=== PATIENT | male | born 1950 | race Caucasian/White ===

== ENCOUNTER 2018-09-17 06:58 | Observation (INO) | payer OTHER ==
[2018-09-17] MEDS ORDERED: METOPROLOL TARTRATE 5 MG/5 ML INJ IV ONE (07:24)
[2018-09-17] MEDS ORDERED: METOPROLOL TAR 25 MG TAB ONE (07:24)
[2018-09-17] MEDS ORDERED: NA CHLORIDE 0.9% 500 ML ONE (07:24)
[2018-09-17] MEDS ORDERED: ASPIRIN 81 MG CHEWABLE TABLET ONE (07:24)
[2018-09-17 07:51] LABS: Absolute Lymphocytes (CBC) 1.5 K/uL (0.7-4.9); Absolute Monocytes 0.5 K/uL (0.1-1.3); Absolute Neutrophil 3.5 K/uL (1.8-8.0); Basophils % 0.6 % (0-1.3); Eosinophils % 1.9 % (0-4.4); Hematocrit 43.4 % (39.6-49.0); Lymphocytes % 27.3 % (15.3-44.8); MPV 10.3 fL (7.6-11.3); Monocytes % 8.7 % (3.3-12.3); RBC Red Blood Cell Count 4.66 M/uL (4.33-5.43)
[2018-09-17 08:07] LABS: BUN Blood Urea Nitrogen 21 mg/dL (7-18); Bicarbonate 25 mmol/L (21-32); Glucose Level 100 mg/dL (74-106); Magnesium 2.5 mg/dL (1.8-2.4); NT PRO-BNP 218 pg/mL (<125); Sodium Level 142 mmol/L (136-145); Troponin (Emerg Dept Use Only) < 0.02 ng/mL (0.0-0.045)
--- NOTE | 2018-09-17 08:27 | RAD REPORT ---
EXAM DESCRIPTION: RAD - Chest Single View - 09/17/2018 8:08 am CLINICAL HISTORY: PALPITATIONS Chest pain. COMPARISON: No comparisons FINDINGS: Portable technique limits examination quality. The lungs are grossly clear. The heart is normal in size. No displaced fractures. IMPRESSION: No acute intrathoracic process suspected.
--- NOTE | 2018-09-17 08:40 | ER ---
Nurse's Notes [facility] Name: Brendon Montesinos Age: 68 yrs Sex: Male : 1950 Arrival Date: 09/17/2018 Time: 07:03 Bed 5 Private MD: Diagnosis: Atrial fibrillation and flutter;Dizziness and giddiness Presentation: 09/17 07:04 Presenting complaint: Patient states: "I woke up this morning feeling really dizzy; lp1 I've had dizzy spells before but they usually go away, this time it's not getting any better"; Patient states slight chest soreness at this time; Denies any N/V, shortness of breath. Transition of care: patient was not received from another setting of care. Onset of symptoms was September 17, 2018. Risk Assessment: Do you want to hurt yourself or someone else? Patient reports no desire to harm self or others. Initial Sepsis Screen: Does the patient meet any 2 criteria? No. Patient's initial sepsis screen is negative. Does the patient have a suspected source of infection? No. Patient's initial sepsis screen is negative. Care prior to arrival: None. 07:04 Method Of Arrival: Wheelchair lp1 07:04 Acuity: KATHY 2 lp1 Historical: - Allergies: 07:07 DEET; lp1 - Home Meds: 07:07 None [Active]; lp1 - PMHx: 07:07 None; lp1 - PSHx: 07:07 None; lp1 - Immunization history:: Adult Immunizations up to date. - Social history:: Smoking status: Patient/guardian denies using tobacco. - Ebola Screening: : No symptoms or risks identified at this time. - Family history:: not pertinent. - Hospitalizations: : No recent hospitalization is reported. Screenin:08 Abuse screen: Denies threats or abuse. Denies injuries from another. Nutritional lp1 screening: No deficits noted. Tuberculosis screening: No symptoms or risk factors identified. 08:39 Fall Risk None identified. tw2 Assessment: 07:05 General: Appears uncomfortable, Behavior is calm, cooperative. Pain: Denies pain. aa5 Neuro: Level of Consciousness is awake, alert, obeys commands, Oriented to person, place, time, situation, Ip Paralegal are equal bilaterally Moves all extremities. Speech is normal, Facial symmetry appears normal, Pupils are PERRLA, Reports dizziness. Cardiovascular: Heart tones S1 S2 present Pt states "the muscles on my chest just feel tired". Pt denies palpitations. Rhythm is irregular. Respiratory: Airway is patent Respiratory effort is even, unlabored, Respiratory pattern is regular, symmetrical, Breath sounds are clear bilaterally. Denies shortness of breath. GI: Patient currently denies nausea, vomiting. : No signs and/or symptoms were reported regarding the genitourinary system. EENT: No signs and/or symptoms were reported regarding the EENT system. Derm: Skin is pink, warm \\T\\ dry. Musculoskeletal: Range of motion: intact in all extremities. 07:05 Cardiovascular: Rhythm is atrial fibrillation with rapid ventricular response. aa5 07:40 Reassessment: Patient and/or family updated on plan of care and expected duration. Pain aa5 level reassessed. Patient is alert, oriented x 3, equal unlabored respirations, skin warm/dry/pink. Cardiovascular: Rhythm is atrial fibrillation with rapid ventricular response. 08:00 Reassessment: Patient is alert, oriented x 3, equal unlabored respirations, skin aa5 warm/dry/pink. Patient denies pain at this time. Pt sitting up in bed reading. Pt states "I am not dizzy right now, I only get dizzy when getting up or walking" . Cardiovascular: Rhythm is atrial fibrillation. 08:45 Reassessment: Patient is alert, oriented x 3, equal unlabored respirations, skin aa5 warm/dry/pink. Patient denies pain at this time. Pt notified of wait time for room assignment and breakfast tray ordered. . 09:20 Reassessment: Patient is alert, oriented x 3, equal unlabored respirations, skin aa5 warm/dry/pink. Pt sitting up in bed eating breakfast, pt tolerating well. . Cardiovascular: Rhythm is sinus rhythm. 09:21 Reassessment: Dr. Rodriguez at bedside. Repeat EKG ordered. . aa5 10:00 Reassessment: Patient is alert, oriented x 3, equal unlabored respirations, skin aa5 warm/dry/pink. Pt notified of room assignment and notified of wait time to be transported to room 229, pt verbalized understanding. . Cardiovascular: Rhythm is sinus rhythm. 10:18 Reassessment: Patient is alert, oriented x 3, equal unlabored respirations, skin aa5 warm/dry/pink. Vital Signs: 07:06 BP 104 / 85; Pulse 122; Resp 18; Temp 97.5(O); Pulse Ox 98% on R/A; Weight 80.74 kg; lp1 Height 5 ft. 11 in. (180.34 cm); Pain 0/10; 07:10 BP 112 / 77; Pulse 128; Resp 16 S; Pulse Ox 100% on R/A; aa5 07:16 BP 101 / 70; Pulse 107; Resp 16 S; Pulse Ox 99% ; aa5 07:20 BP 97 / 74; Pulse 112; Resp 18 S; Pulse Ox 99% on R/A; aa5 07:30 BP 100 / 69; Pulse 120; Resp 18 S; Pulse Ox 99% on R/A; aa5 07:40 BP 98 / 76; Pulse 105; Resp 16 S; Pulse Ox 100% on R/A; aa5 07:44 BP 103 / 75; Pulse 98; Resp 20; Pulse Ox 100% on R/A; tw2 08:04 BP 101 / 80; Pulse 93; Resp 18 S; Pulse Ox 99% on R/A; aa5 08:38 BP 104 / 83; Pulse 85; Resp 19; Pulse Ox 98% on R/A; tw2 09:20 BP 117 / 83; Pulse 77; Resp 16 S; Pulse Ox 97% on R/A; aa5 10:00 BP 100 / 65; Pulse 73; Resp 16 S; Temp 98.0(TE); Pulse Ox 98% on R/A; Pain 0/10; aa5 07:06 Body Mass Index 24.83 (80.74 kg, 180.34 cm) lp1 07:10 Pt's HR fluctuating between 120 and 150 bpm aa5 07:16 HR between 107 and 122 bpm aa5 07:30 HR between 105 to 120 bpm aa5 ED Course: 07:03 Patient arrived in ED. lp1 07:05 Initial lab(s) drawn, by me, sent to lab. Inserted saline lock: 20 gauge in left aa5 forearm, using aseptic technique. Blood collected. 07:05 No provider procedures requiring assistance completed. aa5 07:06 Triage completed. lp1 07:06 Arm band placed on left wrist. lp1 07:07 Jules Rodriguez MD is Attending Physician. rn 07:07 Patient has correct armband on for positive identification. Placed in gown. Bed in low lp1 position. political director on. Pulse ox on. NIBP on. 07:08 EKG done, by ED staff, reviewed by Jules Rodriguez MD. lp1 07:35 Bushra Vail, MARIA LUISA is Primary Nurse. aa5 08:09 XRAY Chest (1 view) In Process Unspecified. EDMS 08:38 Zeyad Dodge DO is Hospitalizing Provider. rn 09:28 EKG done, by quality control tech. reviewed by Jules Rodriguez MD. aa5 09:39 EKG done, by quality control tech. reviewed by Jules Rodriguez MD Repeat EKG. at1 10:18 Patient admitted, IV remains in place. aa5 Administered Medications: 07:12 Drug: Aspirin Chewable Tablet 324 mg Route: PO; aa5 07:47 Follow up: Response: No adverse reaction aa5 07:12 Drug: NS 0.9% 500 ml Route: IV; Rate: bolus; Site: left forearm; aa5 07:35 Follow up: IV Status: Completed infusion; IV Intake: 500ml aa5 07:12 Drug: Metoprolol 25 mg Route: PO; aa5 07:47 Follow up: Response: No adverse reaction aa5 07:13 Drug: Metoprolol 2.5 mg Route: IVP; Site: left forearm; aa5 07:20 Follow up: Response: No adverse reaction aa5 07:36 Drug: Metoprolol 2.5 mg Route: IVP; Site: left forearm; aa5 07:44 Follow up: Response: No adverse reaction; No adverse reaction, HR is decreased aa5 08:44 Drug: Lovenox 1 mg/kg Route: Sub-Q; Site: right lower abdomen; aa5 10:18 Follow up: Response: No adverse reaction aa5 Intake: 07:35 IV: 500ml; Total: 500ml. aa5 Outcome: 08:39 Decision to Hospitalize by Provider. rn 10:18 Admitted to Tele accompanied by tech, family with patient, via stretcher, with chart, aa5 Report called to MARIA LUISA GALVAN 10:18 Condition: stable 10:18 Discharge instructions given to patient, Instructed on the need for admit, Demonstrated understanding of instructions. 10:23 Patient left the ED. aa5 Signatures: Dispatcher [employer] Jules Arredondo MD MD rn Calderon, Audri, RN RN aa5 Chiquis Hoyos, RN RN lp1 Sofia Rouse, carroter EKG Tat1 Leigha Macias RN RN tw2 Corrections: (The following items were deleted from the chart) 09:32 09:21 Reassessment: Dr. Rodriguez at bedside . aa5 aa5
--- NOTE | 2018-09-17 08:40 | EDPHYS ---
Physician Documentation [facility] Name: Brendon Montesinos Age: 68 yrs Sex: Male : 1950 Arrival Date: 09/17/2018 Time: 07:03 Bed 5 Private MD: ED Physician Jules Rodriguez HPI: 09/17 07:12 This 68 yrs old Male presents to ER via Wheelchair with complaints of rn Dizziness. 07:12 The patient presents with feeling faint, lightheadedness. Onset: The symptoms/episode rn began/occurred this morning. Modifying factors: The symptoms are alleviated by nothing, the symptoms are aggravated by standing up. Severity of symptoms: At their worst the symptoms were moderate in the emergency department the symptoms have improved. The patient has not experienced similar symptoms in the past. Reports dizziness, when standing up, began this morning, no symptoms last night, woke up fine this morning, shortly after waking, felt lightheaded, intermittent, not associated with focal weakness/speech or vision problem. NO chest pain/sob. Has never had history of arrythmia. . Historical: - Allergies: 07:07 DEET; lp1 - Home Meds: 07:07 None [Active]; lp1 - PMHx: 07:07 None; lp1 - PSHx: 07:07 None; lp1 - Immunization history:: Adult Immunizations up to date. - Social history:: Smoking status: Patient/guardian denies using tobacco. - Ebola Screening: : No symptoms or risks identified at this time. - Family history:: not pertinent. - Hospitalizations: : No recent hospitalization is reported. ROS: 07:12 Constitutional: Negative for fever, chills, and weight loss, Eyes: Negative for injury, rn pain, redness, and discharge, Neck: Negative for injury, pain, and swelling, Cardiovascular: Negative for chest pain, palpitations, and edema, Respiratory: Negative for shortness of breath, cough, wheezing, and pleuritic chest pain, Abdomen/GI: Negative for abdominal pain, nausea, vomiting, diarrhea, and constipation, MS/Extremity: Negative for injury and deformity, Skin: Negative for injury, rash, and discoloration, Neuro: Negative for headache, numbness, tingling, and seizure. Exam: 07:12 Constitutional: This is a well developed, well nourished patient who is awake, alert, rn and in no acute distress. Head/Face: Normocephalic, atraumatic. Eyes: Pupils equal round and reactive to light, extra-ocular motions intact. Lids and lashes normal. Conjunctiva and sclera are non-icteric and not injected. Cornea within normal limits. Periorbital areas with no swelling, redness, or edema. ENT: MMM Cardiovascular: Irregular rhythm, +tachycardic, distal pulses intact. Respiratory: Lungs have equal breath sounds bilaterally, clear to auscultation. No increased work of breathing, no retractions or nasal flaring. Abdomen/GI: Soft, non-tender MS/ Extremity: Pulses equal, no cyanosis. Neurovascular intact. Full, normal range of motion. Equal circumference. Neuro: Awake and alert, GCS 15, oriented to person, place, time, and situation. Cranial nerves II-XII grossly intact. Motor strength 5/5 in all extremities. Sensory grossly intact. Cerebellar exam normal 07:34 ECG was reviewed by the Attending Physician. rn Vital Signs: 07:06 BP 104 / 85; Pulse 122; Resp 18; Temp 97.5(O); Pulse Ox 98% on R/A; Weight 80.74 kg; lp1 Height 5 ft. 11 in. (180.34 cm); Pain 0/10; 07:10 BP 112 / 77; Pulse 128; Resp 16 S; Pulse Ox 100% on R/A; aa5 07:16 BP 101 / 70; Pulse 107; Resp 16 S; Pulse Ox 99% ; aa5 07:20 BP 97 / 74; Pulse 112; Resp 18 S; Pulse Ox 99% on R/A; aa5 07:30 BP 100 / 69; Pulse 120; Resp 18 S; Pulse Ox 99% on R/A; aa5 07:40 BP 98 / 76; Pulse 105; Resp 16 S; Pulse Ox 100% on R/A; aa5 07:44 BP 103 / 75; Pulse 98; Resp 20; Pulse Ox 100% on R/A; tw2 08:04 BP 101 / 80; Pulse 93; Resp 18 S; Pulse Ox 99% on R/A; aa5 08:38 BP 104 / 83; Pulse 85; Resp 19; Pulse Ox 98% on R/A; tw2 09:20 BP 117 / 83; Pulse 77; Resp 16 S; Pulse Ox 97% on R/A; aa5 10:00 BP 100 / 65; Pulse 73; Resp 16 S; Temp 98.0(TE); Pulse Ox 98% on R/A; Pain 0/10; aa5 07:06 Body Mass Index 24.83 (80.74 kg, 180.34 cm) lp1 07:10 Pt's HR fluctuating between 120 and 150 bpm aa5 07:16 HR between 107 and 122 bpm aa5 07:30 HR between 105 to 120 bpm aa5 MDM: 07:07 Patient medically screened. rn 07:34 Test interpretation: by ED physician or midlevel provider: ECG. rn 08:36 Differential diagnosis: cardiac arrhythmia, hyperventilation, hypovolemia, idiopathic rn dizziness, new onset afib. Data reviewed: vital signs, nurses notes, lab test result(s), EKG, radiologic studies, plain films, and as a result, I will discharge patient. Counseling: I had a detailed discussion with the patient and/or guardian regarding: the historical points, exam findings, and any diagnostic results supporting the discharge/admit diagnosis, lab results, radiology results, the need for further work-up and treatment in the hospital. Response to treatment: the patient's symptoms have markedly improved after treatment, and as a result, I will admit patient. Admission orders: after a detailed discussion of the patient's condition and case, the admit orders are written by me. ED course: Pt with new onset afib and rvr, now rate controlled, BP normal will admit to Dr. Dodge for cardiac evaluation. . 09/17 07:08 Order name: Basic Metabolic Panel; Complete Time: 08:08 rn 09/17 07:08 Order name: CBC with Diff; Complete Time: 08:08 rn 09/17 07:08 Order name: Magnesium; Complete Time: 08:08 rn 09/17 07:08 Order name: NT PRO-BNP; Complete Time: 08:08 rn 09/17 07:08 Order name: Troponin (emerg Dept Use Only); Complete Time: 08:08 rn 09/17 07:08 Order name: XRAY Chest (1 view); Complete Time: 08:33 rn 09/17 07:08 Order name: EKG; Complete Time: 07: rn 09/17 08:43 Order name: Diet Heart Healthy; Complete Time: 08:44 aa5 09/17 07:08 Order name: Cardiac monitoring; Complete Time: 07:28 rn 09/17 07:08 Order name: EKG - Nurse/Tech; Complete Time: 07: rn 09/17 07:08 Order name: IV Saline Lock; Complete Time: 07:29 rn 09/17 07:08 Order name: Labs collected and sent; Complete Time: 07: rn 09/17 07:08 Order name: O2 Per Protocol; Complete Time: 07: rn 09/17 07:08 Order name: O2 Sat Monitoring; Complete Time: 07: rn 09/17 09:43 Order name: EKG Electrocardiogram EDMS EC:34 Rate is 139 beats/min. Rhythm is irregularly irregular. QRS [place] is Normal. QRS rn interval is normal. QT interval is normal. No Q waves. T waves are Inverted in leads V2, V3, V4. No ST changes noted. Clinical impression: Atrial Fibrillation. Interpreted by me. Reviewed by me. Administered Medications: 07:12 Drug: Aspirin Chewable Tablet 324 mg Route: PO; aa5 07:47 Follow up: Response: No adverse reaction aa5 07:12 Drug: NS 0.9% 500 ml Route: IV; Rate: bolus; Site: left forearm; aa5 07:35 Follow up: IV Status: Completed infusion; IV Intake: 500ml aa5 07:12 Drug: Metoprolol 25 mg Route: PO; aa5 07:47 Follow up: Response: No adverse reaction aa5 07:13 Drug: Metoprolol 2.5 mg Route: IVP; Site: left forearm; aa5 07:20 Follow up: Response: No adverse reaction aa5 07:36 Drug: Metoprolol 2.5 mg Route: IVP; Site: left forearm; aa5 07:44 Follow up: Response: No adverse reaction; No adverse reaction, HR is decreased aa5 08:44 Drug: Lovenox 1 mg/kg Route: Sub-Q; Site: right lower abdomen; aa5 10:18 Follow up: Response: No adverse reaction aa5 Disposition: 09/17/18 08:39 Hospitalization ordered by Zeyad Dodge for Inpatient Admission. Preliminary diagnosis are Atrial fibrillation and flutter, Dizziness and giddiness. - Bed requested for Telemetry/MedSurg (Inpatient). - Status is Inpatient Admission. aa5 - Condition is Stable. - Problem is new. - Symptoms have improved. UTI on Admission? No Signatures: Dispatcher [employer] EDMS Jules Rodriguez MD MD rn Calderon, Audri, RN RN aa5 Chiquis Hoyos RN RN lp1 Corrections: (The following items were deleted from the chart) 10:00 08:39 Hospitalization Ordered by Zeyad Dodge DO for Inpatient Admission. Preliminary aa5 diagnosis is Atrial fibrillation and flutter; Dizziness and giddiness. Bed requested for Telemetry/MedSurg (Inpatient). Status is Inpatient Admission. Condition is Stable. Problem is new. Symptoms have improved. UTI on Admission? No. rn 10:23 10:00 09/17/2018 08:39 Hospitalization Ordered by Zeyad Dodge DO for Inpatient aa5 Admission. Preliminary diagnosis is Atrial fibrillation and flutter; Dizziness and giddiness. Bed requested for Telemetry/MedSurg (Inpatient). Status is Inpatient Admission. Condition is Stable. Problem is new. Symptoms have improved. UTI on Admission? No. aa5
[2018-09-17] MEDS ORDERED: ENOXAPARIN 80 MG/0.8 ML SQ ONE (08:53)
--- NOTE | 2018-09-17 09:39 | P.HP ---
Certification for Inpatient Patient admitted to: Observation With expected LOS: <2 Midnights Patient will require the following post-hospital care: None Practitioner: I am a practitioner with admitting privileges, knowledge of patient current condition, hospital course, and medical plan of care. Services: Services provided to patient in accordance with Admission requirements found in Title 42 Section 412.3 of the Code of Federal Regulations Patient History Date of Service: 09/17/18 Primary Care Provider: Dr. El Reason for admission: Dizziness History of Present Illness: 68-year-old male presented to the emergency room with dizziness. Patient will go up with dizziness this morning. He also reported mild chest pain across the chest. He denied any significant shortness of breath, nausea or vomiting. Patient came to the ER for further evaluation. In the ER patient evaluated. Patient found to be in new onset atrial fibrillation with RVR. Patient was given Lopressor IV then metoprolol with improvement of heart rate. Blood pressure stable at this time. CBC unremarkable. Troponin unremarkable. Chest x-ray unremarkable. Sodium 142, potassium 4.0, BUN of 21, creatinine 1.52 with a GFR 46. Patient was admitted for further evaluation and treatment. When I saw the patient ER, he appeared stable. He is without any significant chest pain or shortness of breath at this time. Rate better controlled. Atrial fibrillation noted. Patient reports no prior history of heart problems. Patient does not taking any medication at this time. Home medications list reviewed: Yes - Past Medical/Surgical History Diabetic: No Past Medical History: Patient denies medical history Past Surgical History: Patient denies surgical history Psychosocial/ Personal History: Patient is . He has 2 children. 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 - Family History Father -: Lung disease (COPD), Other (see notes) (Grandfather with heart disease and diabetes.) - Social History Smoking Status: Never smoker Alcohol use: Yes CD- Drugs: No Caffeine use: Yes Place of Residence: Home Review of Systems General: As per HPI Eyes: Unremarkable ENT: Unremarkable Respiratory: As per HPI Cardiovascular: Chest Pain, As per HPI Gastrointestinal: Unremarkable Genitourinary: Unremarkable Musculoskeletal: Unremarkable Integumentary: Unremarkable Neurological: Unremarkable Lymphatics: Unremarkable Physical Examination - Physical Exam General: Alert, In no apparent distress, Oriented x3, Cooperative HEENT: Atraumatic, Normocephalic, PERRLA, Mucous membr. moist/pink Neck: Supple, No Thyromegaly Respiratory: Clear to auscultation bilaterally, Normal air movement Cardiovascular: Irregular heart rate/rhythm (Atrial fibrillation, rate controlled) Gastrointestinal: Normal bowel sounds, Soft and benign, Non-distended, No tenderness, No masses, No rebound, No guarding Musculoskeletal: No erythema, No tenderness, No warmth Integumentary: No erythema, No warmth, No cyanosis, Tenderness/swelling ( Minimal pitting edema to the lower extremities.) Neurological: Normal speech, Normal strength at 5/5 x4 extr, Normal tone, Normal affect - Studies Laboratory Data (last 24 hrs) 09/17/18 07:05: WBC 5.7, Hgb 14.7, Hct 43.4, Plt Count 203 09/17/18 07:05: Sodium 142, Potassium 4.0, BUN 21 H, Creatinine 1.52 H, Glucose 100, Magnesium 2.5 H Assessment and Plan - Plan Impression: Dizziness secondary to new onset atrial fibrillation Acute renal insufficiency likely dehydration Plan: Dizziness secondary to new onset atrial fibrillation: Patient will be admitted for further evaluation and treatment. Case discussed with cardiology. Will start Betapace 80 mg 1 pill twice daily. Will start Lovenox at 1 milligram/ kilogram subcu twice daily. Will monitor patient on telemetry. Will order echocardiogram to further evaluate. Anticipate discharge in the next 24 hr. Will obtain lab to evaluate thyroid. Will check fasting lipid panel. Continue monitor and assess. Await further recommendations from cardiology. Acute renal insufficiency likely dehydration: Will start IV fluids. Will check renal ultrasound to further assess. Monitor lab closely. Discharge Plan: Home Plan to discharge in: 24 Hours - Advance Directives Does patient have a Living Will: No Does patient have a Durable POA for Healthcare: No - Code Status/Comfort Care Code Status Assessed: Yes (Patient is full code.) Time Spent Managing Pts Care (In Minutes): 55
[2018-09-17] MEDS ORDERED: ONDANSETRON 4 MG/2 ML VIAL IV PRN (10:44)
[2018-09-17] MEDS ORDERED: ACETAMINOPHEN 500 MG TAB PO PRN (10:44)
[2018-09-17] MEDS: NA CHLORIDE 0.9% 1,000 ML IV SCH ×2 (11:47→20:37)
[2018-09-17] MEDS: SOTALOL HCL 80 MG TAB PO SCH ×2 (11:47→17:43)
[2018-09-17 12:47] LABS: CKMB Creatine Kinase MB 1.7 ng/mL (0.3-3.6); Troponin I 0.02 ng/mL (0.0-0.045)
[2018-09-17 12:50] LABS: Thyroid Stimulating Hormone 1.13 uIU/mL (0.360-3.740)
[2018-09-17] MEDS ORDERED: PNEUMOCOCCAL VACCINE 0.5 ML IMVAC ONE (13:00)
--- NOTE | 2018-09-17 13:58 | RAD REPORT ---
EXAM DESCRIPTION: US - Renal Ultrasound-Complete - 09/17/2018 1:34 pm CLINICAL HISTORY: acute renal insufficiency COMPARISON: No comparisons FINDINGS: Both kidneys are normal in size, shape and echotexture. The right kidney measures 10.0 x 4.8 x 4.6 cm. No hydronephrosis, focal mass or perinephric fluid. The left kidney measures 9.8 x 5.7 x 5.4 cm. No hydronephrosis, focal mass or perinephric fluid. The urinary bladder is incompletely distended without gross abnormality seen. IMPRESSION: Unremarkable renal sonogram.
--- NOTE | 2018-09-17 17:06 | EKG ---
Test Date: 2018-09-17 Test Time: 09:26:10 Motor Transport Inspector: NAHUM MEASUREMENT RESULTS: Intervals: Rate: 70 IL: 154 QRSD: 78 QT: 370 QTc: 399 [place]: P: 28 [place]: 154 QRS: 39 T: -19 INTERPRETIVE STATEMENTS: Normal sinus rhythm Nonspecific T wave abnormality Abnormal ECG Compared to ECG 09/17/2018 07:00:29 Atrial fibrillation no longer present T-wave abnormality still present Electronically Signed On 09-17-18 17:05:24 CDT by Damon Martell
--- NOTE | 2018-09-17 17:08 | EKG ---
Test Date: 2018-09-17 Test Time: 07:00:29 Real Estate Asset Manager: NANI MEASUREMENT RESULTS: Intervals: Rate: 139 [place]: QRSD: 80 QT: 308 QTc: 468 [place]: P: CO: QRS: 47 T: -12 INTERPRETIVE STATEMENTS: Atrial fibrillation with rapid ventricular response Nonspecific T wave abnormality Abnormal ECG No previous ECG available for comparison Electronically Signed On 09-17-18 17:05:41 CDT by Damon Martell
[2018-09-17 17:53] LABS: Urine Appearance CLEAR; Urine Bilirubin NEGATIVE (NEG); Urine Blood NEGATIVE (NEG); Urine Color YELLOW; Urine Glucose NEGATIVE (NEG); Urine Microscopic Reflex NO UMIC; Urine Protein NEGATIVE (NEG); Urine Urobilinogen 0.2 mg/dL (0.2-1.0); Urine pH 6.5 (5.0-7.0)
[2018-09-17 20:24] LABS: CKMB Creatine Kinase MB 1.5 ng/mL (0.3-3.6); Troponin I 0.03 ng/mL (0.0-0.045)
[2018-09-17] MEDS: FAMOTIDINE 20 MG TAB PO SCH (20:38)
[2018-09-17] MEDS: ENOXAPARIN 80 MG/0.8 ML SQ SCH (20:38)
[2018-09-18 04:51] LABS: Absolute Monocytes 0.4 K/uL (0.1-1.3); Absolute Neutrophil 2.7 K/uL (1.8-8.0); Basophils % 0.8 % (0-1.3); Eosinophils % 2.1 % (0-4.4); Hematocrit 38.3 % (39.6-49.0); Lymphocytes % 38.2 % (15.3-44.8); Monocytes % 7.8 % (3.3-12.3); RBC Red Blood Cell Count 4.08 M/uL (4.33-5.43)
[2018-09-18 04:56] LABS: Magnesium 2.3 mg/dL (1.8-2.4); Potassium 4.9 mmol/L (3.5-5.1)
[2018-09-18] MEDS: SOTALOL HCL 80 MG TAB PO SCH (06:19)
[2018-09-18] MEDS: NA CHLORIDE 0.9% 1,000 ML IV SCH (06:46)
[2018-09-18] MEDS ORDERED: FOLIC ACID 1 MG TABLET PO SCH (09:00)
--- NOTE | 2018-09-18 09:49 | P.DS ---
Admission Date: 09/17/18 Discharge Date: 09/18/18 Primary Care Provider: Dr. El Disposition: ROUTINE DISCHARGE Discharge Condition: GOOD Reason for Admission: Dizziness Consultations: Cardiology-Dr. Smith/Dr. Martell Procedures: ECHO: Pending at discharge Renal US: COMPARISON: No comparisons FINDINGS: Both kidneys are normal in size, shape and echotexture. The right kidney measures 10.0 x 4.8 x 4.6 cm. No hydronephrosis, focal mass or perinephric fluid. The left kidney measures 9.8 x 5.7 x 5.4 cm. No hydronephrosis, focal mass or perinephric fluid. The urinary bladder is incompletely distended without gross abnormality seen. IMPRESSION: Unremarkable renal sonogram. CXR: COMPARISON: No comparisons FINDINGS: Portable technique limits examination quality. The lungs are grossly clear. The heart is normal in size. No displaced fractures. IMPRESSION: No acute intrathoracic process suspected. Medical Problem List: Dizziness secondary to new onset atrial fibrillation Acute on chronic renal disease, stage III Brief History of Present Illness: 68-year-old male presented to the emergency room with dizziness. Patient will go up with dizziness this morning. He also reported mild chest pain across the chest. He denied any significant shortness of breath, nausea or vomiting. Patient came to the ER for further evaluation. In the ER patient evaluated. Patient found to be in new onset atrial fibrillation with RVR. Patient was given Lopressor IV then metoprolol with improvement of heart rate. Blood pressure stable at this time. CBC unremarkable. Troponin unremarkable. Chest x-ray unremarkable. Sodium 142, potassium 4.0, BUN of 21, creatinine 1.52 with a GFR 46. Patient was admitted for further evaluation and treatment. When I saw the patient ER, he appeared stable. He is without any significant chest pain or shortness of breath at this time. Rate better controlled. Atrial fibrillation noted. Patient reports no prior history of heart problems. Patient does not taking any medication at this time. Hospital Course: Patient presented with dizziness. Patient found to be with new onset atrial fibrillation with RVR. Patient was admitted for treatment. Patient seen by Cardiology. Patient was started on Betapace. Patient converted to normal sinus rhythm. No further intervention was required. Echocardiogram to obtained. At discharge patient will continue with Betapace 80 mg 1 pill twice daily and Eliquis 5 mg 1 pill twice daily. Education on atrial fibrillation and chronic anti coagulation therapy will be provided. Recommend to follow up with cardiology in 1-2 weeks to follow up this hospitalization. Patient had acute renal insufficiency. Patient with history of chronic renal disease as per patient history. Patient received IV fluids with improvement. Renal ultrasound unremarkable. Recommend to recheck BMP in 2-4 weeks to monitor his progress. Recommend nephrology consultation as an outpatient to further evaluate. Recommend no further use of nonsteroidal anti- inflammatories. Future medications will need to be renally dosed. Vital Signs/Physical Exam: Temp Pulse Resp BP Pulse Ox 97.4 F 61 16 122/75 97 09/18/18 08:00 09/18/18 08:00 09/18/18 08:00 09/18/18 08:00 09/18/18 08:00 General: Alert, In no apparent distress, Oriented x3, Cooperative HEENT: Atraumatic Neck: Supple Respiratory: Clear to auscultation bilaterally, Normal air movement Cardiovascular: Normal pulses, Regular rate/rhythm Gastrointestinal: Normal bowel sounds, Soft and benign, Non-distended, No tenderness, No masses, No rebound, No guarding Musculoskeletal: No erythema, No tenderness, No warmth Integumentary: No tenderness/swelling, No erythema, No warmth, No cyanosis Neurological: Normal speech, Normal strength at 5/5 x4 extr, Normal tone, Normal affect Laboratory Data at Discharge: WBC 5.4 K/uL (4.3-10.9) 09/18/18 03:58 Hgb 13.1 g/dL (13.6-17.9) L 09/18/18 03:58 Hct 38.3 % (39.6-49.0) L 09/18/18 03:58 Plt Count 172 K/uL (152-406) 09/18/18 03:58 Sodium 144 mmol/L (136-145) 09/18/18 03:58 Potassium 4.9 mmol/L (3.5-5.1) 09/18/18 03:58 BUN 19 mg/dL (7-18) H 09/18/18 03:58 Creatinine 1.37 mg/dL (0.55-1.3) H 09/18/18 03:58 Glucose 85 mg/dL (74-106) 09/18/18 03:58 Magnesium 2.3 mg/dL (1.8-2.4) 09/18/18 03:58 Troponin I 0.03 ng/mL (0.0-0.045) 09/17/18 19:50 Triglycerides 106 mg/dL (<150) 09/18/18 03:58 Cholesterol 132 mg/dL (<200) 09/18/18 03:58 HDL Cholesterol 40 mg/dL (40-60) 09/18/18 03:58 Cholesterol/HDL Ratio 3.30 09/18/18 03:58 Home Medications: Apixaban [Eliquis] 5 mg PO BID #60 tablet 09/18/18 Sotalol HCl [Betapace*] 80 mg PO BID 6AM 6PM #60 tab 09/18/18 New Medications: Apixaban [Eliquis] 5 mg PO BID #60 tablet Sotalol HCl [Betapace*] 80 mg PO BID 6AM 6PM #60 tab Patient Discharge Instructions: 1. Patient will follow up with his PCP within 1 week to follow up this hospitalization. 2. Patient presented with dizziness. Patient found to be with new onset atrial fibrillation with RVR. Patient was admitted for treatment. Patient seen by Cardiology. Patient was started on Betapace. Patient converted to normal sinus rhythm. No further intervention was required. Echocardiogram to obtained. At discharge patient will continue with Betapace 80 mg 1 pill twice daily and Eliquis 5 mg 1 pill twice daily. Education on atrial fibrillation and chronic anti coagulation therapy will be provided. Recommend to follow up with cardiology in 1-2 weeks to follow up this hospitalization. 3. Patient had acute renal insufficiency. Patient with history of chronic renal disease as per patient history. Patient received IV fluids with improvement. Renal ultrasound unremarkable. Recommend to recheck BMP in 2-4 weeks to monitor his progress. Recommend nephrology consultation as an outpatient to further evaluate. Recommend no further use of nonsteroidal anti-inflammatories. Future medications will need to be renally dosed. Diet: AHA Activity: Ad colt Time spent managing pt's care (in minutes): 55
[2018-09-18] MEDS: ENOXAPARIN 80 MG/0.8 ML SQ SCH (10:30)
[2018-09-18] MEDS: FAMOTIDINE 20 MG TAB PO SCH (10:30)
--- NOTE | 2018-09-18 13:59 | CON ---
History Of Present Illness: A 68-year-old man. Mr. Montesinos came to the hospital because he was ort hostatic. He can stand up without feeling the need to kneel. When he came in, he had atrial fibrill ation. His initial EKG showed a heart rate of 139. 2.5 hours later he was in normal rhythm. He has been in normal rhythm overnight and he is now receiving Eliquis and Betapace and tolerating it well. He has no previous history of heart disease of any kind. No history of cardiac arrhythmia. Takes no home medications. Gets followups with Dr. El regularly. He can say, he does not have diabete s, hypertension, dyslipidemia, never used tobacco, never had any vascular interventions. Physical Examination: Vital Signs: 5 feet 11 inches, 178 pounds. HEENT: Normal. Lungs: Clear. Heart: Within normal limits. Abdomen: Soft. Extremities: Normal. No cyanosis, clubbing, or edema. I would recommend he will be discharged taking Eliquis, Betapace, and have long-term followup to gricelda mcclain those 2 medications and the progression of atrial fib. ALBERTINA/MODL Voice ID: [id number] Report ID: [id number]
--- NOTE | 2018-09-18 15:26 | ECHO ---
HEIGHT: 5 ft 11 in WEIGHT: 178 lb 0 oz DATE OF STUDY: 09/18/[address]: Zeyad Dodge DO 2-DIMENSIONAL: YES M.MODE: YES DOPPLER: YES COLOR FLOW: YES TDS: PORTABLE: DEFINITY: BUBBLE STUDY: DIAGNOSIS: NEW ONSET ATRIAL FIBRILLATION CARDIAC HISTORY: CATHERIZATION: NO SURGERY: NO PROSTHETIC VALVE: NO PACEMAKER: NO MEASUREMENTS (cm) DIASTOLIC (NORMALS) SYSTOLIC (NORMALS) IVSd 0.9 (0.6-1.2) LA Diam (1.9-4.0) LVEF 65% LVIDd 3.2 (3.5-5.7) LVIDs 2.1 (2.0-3.5) %FS 35% LVPWd 0.9 (0.6-1.2) Ao Diam 2.6 (2.0-3.7) 2 DIMENSIONAL ASSESSMENT: RIGHT ATRIUM: NORMAL LEFT ATRIUM: NORMAL RIGHT VENTRICLE: NORMAL LEFT VENTRICLE: NORMAL TRICUSPID VALVE: NORMAL MITRAL VALVE: NORMAL PULMONIC VALVE: NORMAL AORTIC VALVE: NORMAL PERICARDIAL EFFUSION: NONE AORTIC ROOT: NORMAL LEFT VENTRICULAR WALL MOTION: NORMAL DOPPLER/COLOR FLOW: MILD TRICUSPID REGURGITATION. NORMAL RIGHT VENTRICULAR SYSTOLIC PRESSURE. COMMENTS: NORMAL 2-DIMENSIONAL ECHOCARDIOGRAM. MILD TRICUSPID REGURGITATION. TECHNOLOGIST: NGUYEN BANKS
== END 2018-09-18 13:16 | disposition home or self-care (01) ==
LOC: ER 06:58 → ERHOLD 09:25 → 2ND 10:16
PROVIDERS: ADMIT Family Medicine; ATTEND Family Medicine
DX: I48.91 Unspecified atrial fibrillation (principal); N28.9 Disorder of kidney and ureter, unspecified
CPT/HCPCS: 36415; 71045; 76770; 80048; 80061; 81003; 82550; 82553; 83735; 83880; 84439; 84443; 84484; 85025; 90670; 93005; 93306; 96372; 96374; 99285; G0009; G0378; J1650; J7030

== ENCOUNTER 2023-03-27 23:29 | Inpatient (IN) | payer OTHER ==
--- OUTSIDE RECORDS SUMMARY | 2023-03-27 23:33 | XMS REPORT | Continuity of Care Document ---
:1950 Author Organization [facility] t Address [address] [place] [address] [address] [place] [address] Care Team Providers Name Role Phone Lloyd Attending Clinician Unavailable Eric Daley Attending Clinician Unavailable Juice Lr Attending Clinician [phone] Juice Lr Attending Clinician Unavailable Lloyd Admitting Clinician Unavailable Juice Lr Admitting Clinician Unavailable Payers Payer Name Policy Type Policy Number Effective Date Expiration Date Heladio dennis [employer]ET[employer] (MEDICARE [id number] 2022 REPLACEMENT PPO) 00:00:00 [employer] [id number] 2021 00:00:00 Problems Condition Condition Condition Status Onset Resolution Last Treating Co mments Source Name Details Category Date Date Treatment Clinician Date Hip joint Hip Joint Problem Active 2020-05 Aza clifton prosthesis Prosthesis 07-05 Or ope present Present 00:00: dic 00 [facility] Idiopathic Idiopathic Problem Active A zalea osteoarthr Osteoarthr 01-18 Or ope itis itis 00:00: dic 00 Sports Medicin e Pain in Pain in Problem Active Kendra right knee Right Knee 01-18 Or ope 00:00: dic 00 Sports Medicin e Osteoarthr Osteoarthr Problem Active A salliea itis of itis of 06-08 Orthope knee Knee 00:00: dic 00 Sports Medicin e Old bucket Old Bucket Problem Active A zalea handle Handle 06-08 Orthope tear of Tear of 00:00: dic lateral Lateral 00 Sports meniscus Meniscus Medici n e Knee joint 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 06-08 Orth ope 00:00: dic 00 Sports Medicin e Allergies, Adverse Reactions, Alerts Allergy Allergy Status Severity Reaction(s) Onset Inactive Treating Comm ents Source Name Type Date Date Clinician No Known DA Active U 2022-05 [facility] 0[facility]11 [place] [facility]: [facility] No Known DA Active U [facility] 9- Clear Allergie 00:00: Haddad s 00 [facility] No Known DA Active U [facility] 9- [place] [facility] 00:00: Orthope s 00 dic Hospita l Social History Smoking Status Start Date Stop Date Source Never Smoker [facility] Medications Ordered Filled Start Stop Current Ordering Indication Dosage Frequency Signature Comments Components Source Medication Medication Date Date Medication? Clinician (SIG) Name Name amoxicillin amoxicillin No amoxicilli Kendra 500 mg 500 mg n 500 mg Orthope capsule capsule capsule dic TAKE 4 TAKE 4 TAKE 4 Sports CAPSULES BY CAPSULES BY CAPSULES Medicin MOUTH 1 MOUTH 1 BY MOUTH 1 e HOUR PRIOR HOUR PRIOR HOUR PRIOR TO TO TO APPOINTMENT APPOINTMENT APPOINTMEN T doxycycline doxycycline No doxycyclin Kendra hyclate 100 hyclate 100 e hyclate Orthope mg tablet mg tablet 100 mg dic TAKE 1 TAKE 1 tablet Sports TABLET TABLET TAKE 1 Medicin TWICE A DAY TWICE A DAY TABLET e FOR 7 DAYS. FOR 7 DAYS. TWICE A START AFTER START AFTER DAY FOR 7 SURGERY SURGERY DAYS. START AFTER SURGERY Durezol Durezol No Durezol Kendra 0.05 % eye 0.05 % eye 0.05 % eye Orthope drops PLACE drops PLACE drops dic 1 DROP INTO [address] 1 Sports LEFT EYE 4 LEFT EYE 4 DROP INTO Medicin TIMES DAILY TIMES DAILY LEFT EYE 4 e FOR 10 DAYS FOR 10 DAYS TIMES DAILY FOR 10 DAYS Eliquis 5 Eliquis 5 No Eliquis 5 Kendra mg tablet mg tablet mg tablet Orthope TAKE 1 TAKE 1 TAKE 1 dic TABLET BY TABLET BY TABLET BY Sports MOUTH TWICE MOUTH TWICE MOUTH Medicin A DAY A DAY TWICE A e DAY ketorolac ketorolac No ketorolac Kendra 10 mg 10 mg 10 mg Orthope tablet TAKE tablet TAKE tablet dic 1 TABLET BY 1 TABLET BY TAKE 1 Sports MOUTH EVERY MOUTH EVERY TABLET BY Medicin 6 HOURS FOR 6 HOURS FOR MOUTH e 5 DAYS 5 DAYS EVERY 6 HOURS FOR 5 DAYS moxifloxaci moxifloxaci No moxifloxac Kendra n 0.5 % eye n 0.5 % eye in 0.5 % Orthope drops drops eye drops dic PLEASE SEE PLEASE SEE PLEASE SEE Sports ATTACHED ATTACHED ATTACHED Med icin FOR FOR FOR e DETAILED DETAILED DETAILED DIRECTIONS DIRECTIONS DIRECTIONS mupirocin 2 mupirocin 2 No mupirocin Kendra % topical % topical 2 % Ortho pe ointment ointment topical dic PLEASE SEE PLEASE SEE ointment Sports ATTACHED ATTACHED PLEASE SEE M edicin FOR FOR ATTACHED e DETAILED DETAILED FOR DIRECTIONS DIRECTIONS DETAILED DIRECTIONS sotalol 80 sotalol 80 No sotalol 80 Kendra mg tablet mg tablet mg tablet Orthope TAKE 1 TAKE 1 TAKE 1 dic TABLET BY TABLET BY TABLET BY Sports MOUTH TWICE MOUTH TWICE MOUTH Medicin A DAY A DAY TWICE A e DAY Zanaflex 4 Zanaflex 4 No Zanaflex 4 Kendra mg tablet mg tablet mg tablet Orthope Take 1 Take 1 Take 1 dic tablet by tablet by tablet by Sports mouth three mouth three mouth Medicin times a day times a day three e as needed as needed times a Start after Start after day as surgery surgery needed Start after surgery Vital Signs Vital Name Observation Time Observation Value Comments Source Height 2022-01-29 00:00:00 71 [in_i] [facility] Medicine BMI (Body Mass 2022-01-29 00:00:00 24.7 kg/m2 [facility] Orthopedic Index) Sports Medicine Body Weight 2022-01-29 00:00:00 177 [lb_av] [facility] Procedures Procedure Date / Time Performing Clinician Source Performed RADEX PELVIS 1/2 VIEWS 2022-01-29 00:00:00 Nimo escobar Orthopedic Sports Medicine [id number] 2021-02-06 00:00:00 MAURICIO [facility] [id number] 2021-02-06 00:00:00 ERIKARO [facility] Total Replacement of 2021-02-06 00:00:00 Kendra Orthopedic Right Hip Joint Sports Medicine Encounters Start End Encounter Admission Attending Care Care Encounter Source Date/Time Date/Time Type Type Clinicians Facility Department ID 2023-03-13 2023-03-13 Outpatient FOG_Burke_R AOSM AOSM 562 Kendra 00:00:00 00:00:00 Sherice [id number] Ortho pe dic Sports Medicin e 2023-02-26 2023-02-26 Outpatient TORIN Daley HCATO PAIN [id number] [facility] 12:32:00 12:32:00 [place] [facility] [place] [facility] 2023-02-11 2023-02-11 Outpatient FOG_Burke_R AOSM AOSM 56 Kendra 00:00:00 00:00:00 Sherice [id number] Ortho pe dic Sports Medicin e 2023-02-11 2023-02-11 Outpatient FOG_Burke_R AOSM AOSM 562 Kendra 00:00:00 00:00:00 Sherice [id number] Ortho pe dic Sports Medicin e 2023-02-06 2023-02-06 Outpatient FOG_Burke_R AOSM AOSM 562 Kendra 00:00:00 00:00:00 Sherice [id number] Ortho pe dic Sports Medicin e 2023-01-29 2023-01-29 Outpatient FOG_Burke_R AOSM AOSM 562 Kendra 00:00:00 00:00:00 Sherice [id number] Ortho pe dic Sports Medicin e 2023-01-29 2023-01-29 Outpatient FOG_Burke_R AOSM AOSM 562 Kendra 00:00:00 00:00:00 Sherice [id number] Ortho pe dic Sports Medicin e 2023-01-29 2023-01-29 Outpatient FOG_Burke_R AOSM AOSM 562 Kendra 00:00:00 00:00:00 Sherice [id number] Ortho pe dic Sports Medicin e 2023-01-10 2023-01-10 Outpatient FOG_Burke_R AOSM AOSM 562 Kendra 00:00:00 00:00:00 Sherice [id number] Ortho pe dic Sports Medicin e 2023-01-10 2023-01-10 Outpatient FOG_Burke_R AOSM AOSM 562 Kendra 00:00:00 00:00:00 Sherice [id number] Ortho pe dic Sports Medicin e 2022-12-31 2022-12-31 Outpatient FOG_Burke_R AOSM AOSM 562 Kendra 00:00:00 00:00:00 Sherice [id number] Ortho pe dic Sports Medicin e 2022-12-27 2022-12-27 Outpatient FOG_Burke_R AOSM AOSM 562 Kendra 00:00:00 00:00:00 Sherice [id number] Ortho pe dic Sports Medicin e 2022-12-25 2022-12-25 Outpatient FOG_Burke_R AOSM AOSM 562 Kendra 00:00:00 00:00:00 Sherice [id number] Ortho pe dic Sports Medicin e 2022-01-30 2022-01-30 Outpatient FOG_Burke_R AOSM AOSM 562 Kendra 00:00:00 00:00:00 Sherice [id number] Ortho pe dic Sports Medicin e 2022-01-30 2022-01-30 Outpatient FOG_Burke_R AOSM AOSM 562 Kendra 00:00:00 00:00:00 Sherice [id number] Ortho pe dic Sports Medicin e 2022-01-29 2022-01-29 Outpatient FOG_Burke_R AOSM AOSM 562 Kendra 00:00:00 00:00:00 Sherice [id number] Ortho pe dic Sports Medicin e 2022-01-29 2022-01-29 Juice Weston AOSM [place] - Ortho 13 Kendra 00:00:00 00:00:00 MD Be: [place] [address] [address] [facility]Of[facility] dic [employer] [employer] [facility] [address], [place] [address] , Ph. [phone] 2022-01-29 2022-01-29 Outpatient FIORELLA Lr AOSM [id number] 00:00:00 00:00:00 Juice Weston [id number] 2022-01-27 2022-01-27 Outpatient FOG_Burke_R AOSM AOSM 56 Kendra 00:00:00 00:00:00 obMiguel [id number] Ortho pe dic Sports Medicin e 2022-01-23 2022-01-23 Outpatient FOG_Burke_R AOSM AOSM 56 Kendra 00:00:00 00:00:00 Sherice [id number] Ortho pe dic Sports Medicin e 2021-01-26 2021-02-07 Inpatient MARGARET Stokes ADMI [id number] [facility] 10:00:00 12:44:00 Juice Lyles [place] [facility] 2021-02-01 2021-02-01 Outpatient BELLA Lr LABO [id number] [facility] 16:54:00 16:54:00 Juice Pollack [facility] 2021-02-01 2021-02-01 Outpatient MARGARET Stokes 3DAY [id number] [facility] 09:00:00 09:00:00 Juice Bautista [place] [facility] Results Test Description Test Time Test Comments Results Result [facility] e Comments - XR FLUORO FOR 2023-03-03 SPINE INJ 09:20:00 [facility] [place] [facility] SSDName: ANJU HOLDEN Tammi : 1950 Sex: M Patient Name: ANJU HOLDEN Unit No: [id number] EXAMS: CPT CODE: [id number] XR FLUORO FOR SPINE INJ 63029 LUMBAR EPIRADICULAR INJECTION PREOPERATIVE DIAGNOSIS: Lumbar Radiculitis POSTOPERATIVE DIAGNOSIS: Same as above PROCEDURES PERFORMED: Fluoroscopically guided needle localization of the right L4 and L5 spinal nerves with transforaminal epidurograms and epidural injection of local anesthetic and steroid. FINDINGS: Preinjection VAS 6/10. Postinjection VAS 0/10. Steroid response pending follow-up. ESTIMATED BLOOD LOSS: Minimal ANESTHESIA: TIVA COMPLICATIONS: None DETAILS OF PROCEDURE: After obtaining stable vital signs, informed consent and IV access, with no contraindications, the patient was taken to the operating room and placed in a prone position with all extremities padded and appropriate monitors placed. The patient was sterilely prepped and draped over the lumbosacral spine. Using fluoroscopic visualization the insertion sites were marked for paravertebral approaches and using standard technique, a 25 gauge needle was advanced to the base of each pedicle without paresthesias. Isovue-300 contrast 0.2 mL of was injected at each level incrementally with frequent negative aspirations to produce each epidurogram. There were no signs of intravascular or intrathecal uptake. Bupivicaine 0.75% 0.25 mL with lidocaine 4% 0.5 mL and Decadron 5 mg was then incrementally injected with frequent negative aspirations at each level and again there were no signs of intravascular or intrathecal uptake. The needles were removed and the patient was taken to the PACU in good condition. Image: Image 1 Image: Image 2 at 0920 Reported and signed by: AMI CARCAMO MD CC: Juice Lr MD Technologist: Theresa Lanza(R) Transcribed D/ (919) [place] NAME: ANJU HOLDEN [address] [facility] PHYS: Eric Barcenas MD [place], [place] [address] : 1950 AGE: 73 SEX: M LOC: GIULIA PHONE #: [phone] EXAM DATE: 02/26/2023 STATUS: [facility] FAX #: [phone] RAD #: D/C DT PAGE 1 Signed Report Patient Name: ANJU HOLDEN Unit No: [id number] EXAMS: CPT CODE: [id number] XR FLUORO FOR SPINE INJ 24475 (Continued) Orig Print D/T: S: 03/03/2023 (0923) [place] [facility] NAME: ANJU HOLDEN [address] [facility] PHYS: Eric Barcenas MD [place], [place] [address] : 1950 AGE: 73 SEX: M LOC: GIULIA PHONE #: [phone] EXAM DATE: 02/26/2023 STATUS: [facility] [place] [facility] FAX #: [phone] RAD #: D/C DT PAGE 2 Signed Report - XR PELVIS /2021-02-07 VIEWS 09:52:00 [facility] : 1950 Sex: M Patient Name: ANJU HOLDEN Unit No: [id number] EXAMS: CPT CODE: [id number] XR PELVIS 1/2 VIEWS 04563 INTRAOPERATIVE LEG LENGTH FILM COMMENT: COMPARISON: No prior exams available. In progress right hip replacement is noted. AP portable right hip COMMENT: The patient is status post joint replacement which is articulating normally. at 0952 Reported and signed by: Mike Stevenson MD CC: Juice Lr MD Technologist: YIMI VORA, RT(R) Transcribed D/ (0952) [facility] NAME: ANJU HOLDEN [address] [facility] PHYS: Juice Nowak MD : 1950 AGE: 71 SEX: Tammi [place], [place] [address] LOC: Y.322 A PHONE #: [phone] EXAM DATE: 02/06/2021 STATUS: ADM IN FAX #: [phone] RAD #: D/C DT PAGE 1 Signed Report Patient Name: ANJU HOLDEN Unit No: [id number] EXAMS: CPT CODE: [id number] XR PELVIS 05/20 VIEWS 08578 (Continued) Orig Print D/T: S: 02/07/2021 (0955) [facility] NAME: ANJU HOLDEN [address] [facility] PHYS: Juice Nowak MD : 1950 AGE: 71 SEX: M [place], [place] [address] LOC: Y.322 A PHONE #: [phone] EXAM DATE: 02/06/2021 STATUS: ADM IN FAX #: [phone] RAD #: D/C DT PAGE 2 Signed Report - XR PELVIS 05/202021-02-07 VIEWS 09:52:00 [facility] : 1950 Sex: M Patient Name: ANJU HOLDEN Unit No: [id number] EXAMS: CPT CODE: [id number] XR PELVIS 1/2 VIEWS 99575 INTRAOPERATIVE LEG LENGTH FILM COMMENT: COMPARISON: No prior exams available. In progress right hip replacement is noted. AP portable right hip COMMENT: The patient is status post joint replacement which is articulating normally. at 0952 Reported and signed by: Mike Stevenson MD CC: Juice Lr MD Technologist: FILOMENA MAYS (RT.R) Transcribed D/ (951) Dem[facility] NAME: ANJU HOLDEN [address] [facility] PHYS: Juice Nowak MD : 1950 AGE: 71 SEX: M [place] [address] LOC: Y.322 A PHONE #: [phone] EXAM DATE: 02/06/2021 STATUS: ADM IN FAX #: [phone] RAD #: D/C DT PAGE 1 Signed Report Patient Name: ANJU HOLDEN Unit No: [id number] EXAMS: CPT CODE: [id number] XR PELVIS 1/2 VIEWS 18520 (Continued) Orig Print D/T: S: 02/07/2021 (954) [facility] NAME: ANJU HOLDEN [address] [facility] PHYS: Juice Nowak MD : 1950 AGE: 71 SEX: M [place] [address] LOC: Y.322 A PHONE #: [phone] EXAM DATE: 02/06/2021 STATUS: ADM IN FAX #: [phone] RAD #: D/C DT PAGE 2 Signed Report BASIC METABOLIC PANEL 2021-02-07 06:47:00 Test Item Value Reference Range Interpretation Comme nts SODIUM (test code = NA) 139 mmol/L 136-145 N POTASSIUM (test code = K) 5.0 mmol/L 3.5-5.1 N CHLORIDE (test code = CL) 104.0 mmol/L 98-107 N CARBON DIOXIDE (test code = 25.0 mmol/L 21-32 N CO2) GLUCOSE (test code = GLU) 152 mg/dL 70-110 H BLOOD UREA NITROGEN (test code 28 mg/dL 7-18 H = BUN) GLOMERULAR FILTRATION RATE 39.2 >60 U nit of measure: mL/min/1.73 (test code = GFR) [id number] Range:Healthy Adults >90 mL/m in/1.73 m2 For Chronic Kidney Disease: Stage II Mild Decreas e in GFR 60-90 Stage III Moder ate Decrease in GFR 30-59 St age IV Severe Decrease in GFR 15-29 Stage V Kidney Failure <15 CREATININE (test code = CREAT) 1.73 mg/dL 0.55-1.30 H CALCIUM (test code = CA) 8.3 mg/dL 8.2-10.1 N [id number] 06:47:00 Test Item Value Reference Range Interpretation Comments MAGNESIUM (test code = MAG) 2.1 mg/dL 1.8-2.4 N HGB [id number] 06:04:00 Test Item Value Reference Range Interpretation Comments HEMOGLOBIN (test code = HGB) 9.2 g/dL 12-16 L HEMATOCRIT (test code = HCT) 26.8 % 37-47 L SPECIMEN COMMENT: POD #1Novel Coronavirus 2019 [id number] 04:59:00 Test Item Value Reference Range Interpretation Comments Novel Coronavirus Negative Negative Positive r esults are 2019 Inhouse (test indicativ e of the presence code = COVNONPUI) ofSARS-CoV -2 RNA, clinical correlation wit h patient historyand othe r diagnostic info rmation is necessary to determinepatien t infection status. Positiv e results do not rule out bacterial infection or co -infection with other viru ses. Negative result s do not preclude SARS-C oV-2 infection andsh ould not be used as the izabela e basis for patient managementdecis ions. Negative result s must be combined with otherclinical observations, p atient history, and epidemiological information . Detection of SARS-CoV-2 RNA may be affe cted bysample collec tion methods, storag e conditions, and /or stageof infection. Jasmin l RNA mutations, vacc inations, antiviraltherap eutics, antibiotics, chemotherapeuti c orimmunosuppres emily drugs have not been e valuated for effectson d etection. Results are for the identification of SARS-CoV-2 RNA usingthe Jacques M2000 Sy stem under the FDA Emergen cy UseAuthorizatio n. The testing is perf ormed by personneltraine d in the procedures for the Jacques M2000 molecular diagnostic SARS-CoV-2 assa y in vitro. Novel Coronavirus 2018 [id number] 04:59:00 Test Item Value Reference Range Interpretation Comments Novel Coronavirus Negative Negative Positive r esults are 2019 Inhouse (test indicativ e of the presence code = COVNONPUI) ofSARS-CoV -2 RNA, clinical correlation wit h patient historyand othe r diagnostic info rmation is necessary to determinepatien t infection status. Positiv e results do not rule out bacterial infection or co -infection with other viru ses. Negative result s do not preclude SARS-C oV-2 infection andsh ould not be used as the izabela e basis for patient managementdecis ions. Negative result s must be combined with otherclinical observations, p atient history, and epidemiological information . Detection of SARS-CoV-2 RNA may be affe cted bysample collec tion methods, storag e conditions, and /or stageof infection. Jasmin l RNA mutations, vacc inations, antiviraltherap eutics, antibiotics, chemotherapeuti c orimmunosuppres emily drugs have not been e valuated for effectson d etection. Results are for the identification of SARS-CoV-2 RNA usingthe Jacques M2000 Sy stem under the FDA Emergen cy UseAuthorizatio n. The testing is perf ormed by personneltraine d in the procedures for the Jacques M2000 molecular diagnostic SARS-CoV-2 assa y in vitro.
[2023-03-28 00:05] LABS: Absolute Lymphocytes (CBC) 1.9 K/uL (0.7-4.9); Hematocrit 37.2 % (39.6-49.0); Lymphocytes % 28.2 % (15.3-44.8); MCV 94.4 fL (80-100); MPV 8.6 fL (7.6-11.3); Platelets 178 thou/uL (152-406); RBC Red Blood Cell Count 3.94 M/uL (4.33-5.43)
[2023-03-28 00:09] LABS: Protime INR 1.48
[2023-03-28] MEDS ORDERED: NA CHLORIDE 0.9% 1,000 ML ONE ×2 (00:12→05:47)
[2023-03-28 00:25] LABS: Magnesium 2.3 mg/dL (1.6-2.4); Potassium 3.3 mEq/L (3.5-5.1); Troponin High Sensitivity 13.6 pg/mL (<58.9)
[2023-03-28 00:32] LABS: Specific Gravity 1.011 (1.005-1.030); Urine Bacteria None Seen /HPF (<20); Urine Bilirubin NEGATIVE (Negative); Urine Blood Negative (Negative); Urine Clarity Turbid (Clear); Urine Color Light-Yellow (Yellow); Urine Glucose NEGATIVE (Negative); Urine Mucus Slight /HPF (None Seen); Urine Protein NEGATIVE (Negative); Urine RBC <5 /HPF (None Seen); Urine Urobilinogen Normal (Normal); Urine WBC Clump Rare /HPF (None Seen)
--- NOTE | 2023-03-28 02:55 | ER ---
Nurse's Notes [facility] Name: Brendon Montesinos Age: 73 yrs Sex: Male : 1950 Arrival Date: 03/27/2023 Time: 23:29 Bed 20 Private MD: Diagnosis: Unspecified atrial fibrillation Presentation: 03/27 23:42 Chief complaint: Patient states: new onset weakness and feeling tired this evening. 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 denies chest pain/SOB. Coronavirus screen: Client denies travel out of the [place] in the last 14 days. At this time, the client does not indicate any symptoms associated with coronavirus-19. Ebola Screen: No symptoms or risks identified at this time. Initial Sepsis Screen: Does the patient meet any 2 criteria? No. Patient's initial sepsis screen is negative. Does the patient have a suspected source of infection? No. Patient's initial sepsis screen is negative. Risk Assessment: Do you want to hurt yourself or someone else? Patient reports no desire to harm self or others. Onset of symptoms was March 27, 2023. 23:42 Method Of Arrival: Wheelchair lg3 23:42 Acuity: KATHY 3 lg3 Triage Assessment: 23:44 General: Appears in no apparent distress. comfortable, Behavior is calm, cooperative. lg3 Pain: Denies pain. EENT: No deficits noted. No signs and/or symptoms were reported regarding the EENT system. Neuro: No deficits noted. Arellano Agitation-Sedation Scale (RASS): 0 - Alert and Calm Level of Consciousness is awake, alert, obeys commands, Oriented to person, place, time, situation, Reports weakness. Cardiovascular: No deficits noted. Denies chest pain, shortness of breath, Capillary refill < 3 seconds Clubbing of nail beds is absent JVD is absent Patient's skin is warm and dry. Respiratory: No deficits noted. Airway is patent Respiratory effort is even, unlabored, Respiratory pattern is regular, symmetrical. GI: No deficits noted. No signs and/or symptoms were reported involving the gastrointestinal system. : No deficits noted. No signs and/or symptoms were reported regarding the genitourinary system. Derm: No deficits noted. No signs and/or symptoms reported regarding the dermatologic system. Skin is intact, is healthy with good turgor, Skin is dry, Skin is normal, Skin temperature is warm. Musculoskeletal: No deficits noted. No signs and/or symptoms reported regarding the musculoskeletal system. Circulation, motion, and sensation intact. Range of motion: intact in all extremities. Historical: - Allergies: 23:44 DEET; lg3 - Home Meds: 23:44 Eliquis oral [Active]; Sotalol Oral [Active]; lg3 - PMHx: 23:44 AFIB; lg3 - PSHx: 23:44 right hip replacement; lg3 - Immunization history:: Adult Immunizations up to date, Client reports receiving the 2nd dose of the Covid vaccine, Flu vaccine is up to date. - Social history:: Smoking status: Patient denies any tobacco usage or history of. Patient uses alcohol, but reports only rare drinking. Screenin/10 00:27 [facility] ED Fall Risk Assessment (Adult) History of falling in the last 3 months, vc1 including since admission No falls in past 3 months (0 pts) Confusion or Disorientation No (0 pts) Intoxicated or Sedated No (0 pts) Impaired Gait No (0 pts) Mobility Assist Device Used No (0 pt) Altered Elimination No (0 pt) Score/Fall Risk Level 0 - 2 = Low Risk Oriented to surroundings, Maintained a safe environment, Educated pt \T\ family on fall prevention, incl call for assistance when getting out of bed. Abuse screen: Denies threats or abuse. Nutritional screening: No deficits noted. Tuberculosis screening: No symptoms or risk factors identified. Assessment: 01:35 Reassessment: No changes from previously documented assessment. Patient and/or family vc1 updated on plan of care and expected duration. Pain level reassessed. Patient is alert, oriented x 3, equal unlabored respirations, skin warm/dry/pink. 03:14 Reassessment: No changes from previously documented assessment. Patient and/or family vc1 updated on plan of care and expected duration. Pain level reassessed. Patient is alert, oriented x 3, equal unlabored respirations, skin warm/dry/pink. Pain: Denies pain. Vital Signs: 03/27 23:42 BP 90 / 66; Pulse 112; Resp 17 S; Pulse Ox 97% on R/A; Weight 78.47 kg (R); Height 5 lg3 ft. 11 in. (R); 03/28 01:34 BP 95 / 71; Pulse 86; Resp 23; Pulse Ox 98% ; vc1 02:28 BP 113 / 78; Pulse 84; Resp 12; Pulse Ox 100% ; vc1 03:14 BP 113 / 85; Pulse 74; Resp 16; Pulse Ox 100% ; vc1 03/27 23:42 Body Mass Index 24.13 (78.47 kg, 180.34 cm) lg3 ED Course: 03/27 23:34 Patient arrived in ED. jj6 23:35 Nolberto Peterson PA is PHCP. cp 23:35 Terrence Singh MD is Attending Physician. cp 23:44 Triage completed. lg3 23:44 Arm band placed on right wrist. lg3 03/28 00:04 Christine Martínez RN is Primary Nurse. vc1 00:15 Inserted saline lock: 20 gauge in right antecubital area, using aseptic technique. vc1 Blood collected. 00:17 XRAY Chest (1 view) In Process Unspecified. EDMS 02:54 Willi Lay MD is Hospitalizing Provider. cp 05:15 Patient has correct armband on for positive identification. Bed in low position. Call vc1 light in reach. Provided Education on: fall risk. Client placed on continuous cardiac and pulse oximetry monitoring. NIBP monitoring applied. 05:15 No provider procedures requiring assistance completed. Patient admitted, IV remains in vc1 place. 05:15 Patient maintains SpO2 saturation greater than 95% on room air. vc1 07:06 Primary Nurse role handed off by Christine Martínez, MARIA LUISA ll1 07:06 Shanika Goldman, MARIA LUISA is Primary Nurse. ll1 Administered Medications: 00:06 Drug: NS 0.9% IV 500 ml IV at bolus once Route: IV; Rate: bolus; Site: right vc1 antecubital; 17:33 Follow up: IV Status: Completed infusion; IV Intake: 500ml ll1 01:56 Drug: NS 0.9% IV 500 ml IV at bolus once Route: IV; Rate: bolus; Site: right vc1 antecubital; 17:33 Follow up: IV Status: Completed infusion; IV Intake: 500ml ll1 Medication: 00:27 VIS not applicable for this client. vc1 Intake: 17:33 IV: 500ml; Total: 500ml. ll1 17:33 IV: 500ml; Total: 1000ml. ll1 Outcome: 02:54 Decision to Hospitalize by Provider. cp 05:15 Admitted to ER Hold. Please see [facility] for further documentation. vc1 05:15 Condition: good 05:15 Instructed on the need for admit, vc1 17:32 Patient left the ED. ll1 Signatures: Dispatcher [employer] EDMS Nolberto Peterson PA PA cp Gibson, Lacie, RN RN lg3 Shanika Goldman RN RN ll1 Josephine Carr jj6 Christine Martínez RN RN vc1
--- NOTE | 2023-03-28 02:55 | EDPHYS ---
Physician Documentation [facility] Name: Brendon Montesinos Age: 73 yrs Sex: Male : 1950 Arrival Date: 03/27/2023 Time: 23:29 Bed 20 Private MD: ED Physician Terrence Singh HPI: 03/27 23:45 This 73 yrs old Male presents to ER via Wheelchair with complaints of Irregular Pulse. cp 23:45 The patient presents with a history of irregular heart beat. cp 23:45 Context: The symptoms occur after getting off plane this evening. Onset: The cp symptoms/episode began/occurred today. Duration: The patient or guardian reports a single episode, that is still ongoing. Associated signs and symptoms: Pertinent positives: near-syncope, general weakness. Severity of symptoms: in the emergency department the symptoms are unchanged. Patient reports history of A-fib. Historical: - Allergies: 23:44 DEET; lg3 - Home Meds: 23:44 Eliquis oral [Active]; Sotalol Oral [Active]; lg3 - PMHx: 23:44 AFIB; lg3 - PSHx: 23:44 right hip replacement; lg3 - Immunization history:: Adult Immunizations up to date, Client reports receiving the 2nd dose of the Covid vaccine, Flu vaccine is up to date. - Social history:: Smoking status: Patient denies any tobacco usage or history of. Patient uses alcohol, but reports only rare drinking. ROS: 23:50 Constitutional: Negative for body aches, chills, fever, poor PO intake, cp 23:50 Cardiovascular: Positive for palpitations, Negative for chest pain, edema, cp 23:50 Abdomen/GI: Negative for abdominal pain, vomiting, diarrhea, constipation, 23:50 Neuro: Positive for near syncope, weakness, Negative for altered mental status, dizziness, headache, syncope, 23:50 Respiratory: Negative for cough, shortness of breath, wheezing, cp 23:50 ENT: Negative for drainage from ear(s), ear pain, sore throat, difficulty swallowing, cp difficulty handling secretions, 23:50 All other systems are negative, Exam: 23:50 ECG was reviewed by the Attending Physician. cp 23:54 Constitutional: The patient appears in no acute distress, alert, awake, comfortable, cp non-diaphoretic, non-toxic, well developed, well nourished, 23:54 Head/Face: Normocephalic, atraumatic. cp 23:54 Eyes: Periorbital structures: appear normal, Pupils: equal, round, and reactive to light and accomodation, Extraocular movements: intact throughout, Conjunctiva: normal, no exudate, no injection, Sclera: no appreciated abnormality, Lids and lashes: appear normal, bilaterally, 23:54 ENT: External ear(s): are unremarkable, Nose: is normal, Mouth: Lips: moist, Oral mucosa: pink and intact, moist, Posterior pharynx: is normal, airway is patent, no erythema, no exudate, 23:54 Neck: ROM/movement: is normal, is supple, without pain, no range of motions limitations, 23:54 Chest/axilla: Inspection: normal, Palpation: is normal, no crepitus, no tenderness, 23:54 Cardiovascular: Rate: tachycardic, Rhythm: irregular, Edema: is not appreciated, JVD: is not appreciated, 23:54 Respiratory: the patient does not display signs of respiratory distress, Respirations: normal, no use of accessory muscles, no retractions, labored breathing, is not present, Breath sounds: are clear throughout, no decreased breath sounds, no stridor, no wheezing, 23:54 Abdomen/GI: Inspection: abdomen appears normal, Bowel sounds: active, all quadrants, Palpation: abdomen is soft and non-tender, in all quadrants, 23:54 Back: pain, is absent, ROM is normal, 23:54 Neuro: Orientation: to person, place \T\ time. Mentation: is normal, Cerebellar function: is grossly normal, Motor: moves all fours, strength is normal, Sensation: is normal, Vital Signs: 23:42 BP 90 / 66; Pulse 112; Resp 17 S; Pulse Ox 97% on R/A; Weight 78.47 kg (R); Height 5 lg3 ft. 11 in. (R); 03/28 01:34 BP 95 / 71; Pulse 86; Resp 23; Pulse Ox 98% ; vc1 02:28 BP 113 / 78; Pulse 84; Resp 12; Pulse Ox 100% ; vc1 03:14 BP 113 / 85; Pulse 74; Resp 16; Pulse Ox 100% ; vc1 03/27 23:42 Body Mass Index 24.13 (78.47 kg, 180.34 cm) lg3 MDM: 03/27 23:42 Patient medically screened. 03/28 02:55 Data reviewed: vital signs, nurses notes, lab test result(s), EKG, radiologic studies, cp plain films. 02:55 Management of patient was discussed with the following: Hospitalist: Karen Jones NP cp will admit after discussion. Counseling: I had a detailed discussion with the patient and/or guardian regarding the historical points, exam findings, and any diagnostic results supporting the discharge/admit diagnosis, lab results, radiology results, the need for further work-up and treatment in the hospital. Response to treatment: the patient's symptoms have markedly improved after treatment, and as a result, I will admit patient. 03/27 23:47 Order name: Basic Metabolic Panel; Complete Time: 00:53 03/28 00:53 Interpretation: Normal except: K 3.3; CL 108; GLUC 130; BUN 22; CRE 1.42; GFR 53. 03/27 23:47 Order name: CBC with Diff; Complete Time: 00:53 03/28 00:53 Interpretation: Normal except: RBC 3.94; HGB 13.2; HCT 37.2. 03/27 23:47 Order name: Magnesium; Complete Time: 00:53 03/27 23:47 Order name: NT PRO-BNP; Complete Time: 00:53 03/28 00:53 Interpretation: NT PRO-BNP 1371; Reviewed. 03/27 23:47 Order name: PT-INR; Complete Time: 00:53 03/28 00:54 Interpretation: Normal except: PT 16.3. 03/27 23:47 Order name: Troponin HS; Complete Time: 00:53 03/27 23:47 Order name: Urinalysis W/Microscopic; Complete Time: 00:53 03/27 23:59 Order name: Lactate w/ 2H reflex if indic.; Complete Time: 00:53 03/28 04:31 Order name: CBC with Automated Diff; Complete Time: 04:36 EDMS 03/28 04:46 Order name: Comprehensive Metabolic Panel; Complete Time: 05:20 EDMS 03/28 04:46 Order name: Troponin High Sensitivity; Complete Time: 05:20 EDMS 03/28 04:46 Order name: Magnesium; Complete Time: 05:20 EDIN 03/28 04:50 Order name: Thyroid Stimulating Hormone; Complete Time: 05:20 [facility] 03/28 13:32 Order name: Troponin High Sensitivity [facility] 03/27 23:47 Order name: XRAY Chest (1 view) 03/27 23:36 Order name: EKG; Complete Time: 23:36 03/27 23:36 Order name: EKG - Nurse/Tech; Complete Time: 00:05 03/27 23:47 Order name: Cardiac monitoring; Complete Time: 01:55 03/27 23:47 Order name: IV Saline Lock; Complete Time: 00:05 03/27 23:47 Order name: Labs collected and sent; Complete Time: 00:05 03/27 23:47 Order name: O2 Per Protocol; Complete Time: 00:05 03/27 23:47 Order name: O2 Sat Monitoring; Complete Time: 00:05 03/28 01:26 Order name: Vital Signs: blood pressure recheck; Complete Time: 01:40 cp EC/09 23:50 Rate is 106 beats/min. Rhythm is irregular. QRS interval is normal. QT interval is cp normal. Interpreted by me. Reviewed by me. Administered Medications: 03/28 00:06 Drug: NS 0.9% IV 500 ml IV at bolus once Route: IV; Rate: bolus; Site: right vc1 antecubital; 17:33 Follow up: IV Status: Completed infusion; IV Intake: 500ml ll1 01:56 Drug: NS 0.9% IV 500 ml IV at bolus once Route: IV; Rate: bolus; Site: right vc1 antecubital; 17:33 Follow up: IV Status: Completed infusion; IV Intake: 500ml ll1 Disposition: 04:34 Co-signature as Attending Physician, Terrence Singh MD I reviewed the patient's care rt provided by the Advanced Practice Provider and agree with the diagnosis and treatment plan. Disposition Summary: 03/28/23 02:54 Hospitalization Ordered Notes: Hospitalization Status: Observation cp Provider: Willi Lay cp Condition: Stable cp Problem: new cp Symptoms: have improved cp Bed/Room Type: Standard cp Location: Telemetry/MedSurg (observation)(03/28/23 16:31) eb Room Assignment: [facility](03/28/23 16:31) eb Diagnosis - Unspecified atrial fibrillation cp Forms: - Medication Reconciliation Form cp - SBAR form cp - Leadership Thank You Letter cp Signatures: Dispatcher [employer] EDNolberto Red PA PA cp Garcia, Cindy, RN RN cg Lisa Chawla Lacie RN RN lg3 Christine Martínez RN RN vc1 Terrence Singh MD MD rt Shanika Goldman RN ll1 Corrections: (The following items were deleted from the chart) 05:14 02:54 Telemetry/MedSurg (observation) cp cg 05:14 02:54 cp cg 05:14 05:14 [facility] ER HOLD cg vc1 05:14 05:14 ERHOLD- cg vc1 05:15 05:14 vc1 vc1 16:31 05:14 [facility] ER HOLD vc1 eb 16:31 05:15 ERHOLD- vc1 eb 03/29 14:10 03/27 23:50 Neuro: Positive for weakness, Negative for altered mental status, cp dizziness, headache, syncope, cp
--- NOTE | 2023-03-28 04:10 | P.HP ---
Certification for Inpatient Patient admitted to: Observation With expected LOS: <2 Midnights Patient will require the following post-hospital care: None Practitioner: I am a practitioner with admitting privileges, knowledge of patient current condition, hospital course, and medical plan of care. Services: Services provided to patient in accordance with Admission requirements found in Title 42 Section 412.3 of the Code of Federal Regulations Patient History Date of Service: 03/28/23 Primary Care Provider: Dr. El Reason for admission: a. fib, hypotension, volume depletion History of Present Illness: Pt was diagnosed with atrial fibrillation in 2019. He is taking Sotalol and Eliquis. No s/s since dx until today. Pt was visiting [place] and flew home, when pt stood to exit the plane he became dizzy and had to sit down. He waited to exit the plane until last but then had to walk about a half a mile to his vehicle. Mr. Montesinos states when he began feeling his heartbeat in his fingertips he came to the ED for assessment. On arrival to ED his blood pressure was 90/66 Allergies DEET Adverse Reaction (Uncoded 03/28/23 04:00) Home medications list reviewed: Yes Home Medications: Apixaban [Eliquis] 5 mg PO BID #60 tablet 09/18/18 Sotalol HCl [Betapace*] 80 mg PO BID 6AM 6PM #60 tab 09/18/18 - Past Medical/Surgical History Diabetic: No -: Pnuemonia 1974 -: AFIB 2018 -: Right leg pain/lumbar and cervical djd -: Tooth Implant -: hip surgery Psychosocial/ Personal History: Patient is . He has 2 children. 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 - Family History Father -: Lung disease, Other (see notes) - Social History Smoking Status: Never smoker Alcohol use: Yes CD- Drugs: No Caffeine use: Yes Place of Residence: Home Review of Systems General: Weakness, Malaise Cardiovascular: Palpitations, Light Headedness Neurological: Other (dizziness) Physical Examination - Vital Signs Temperature: 97.8 F Blood Pressure: 103/85 Pulse: 84 Respirations: 18 Pulse Ox (%): 100 - Physical Exam General: Alert, In no apparent distress, Oriented x3 HEENT: Atraumatic, Normocephalic, PERRLA Neck: 2+ carotid pulse no bruit Respiratory: Clear to auscultation bilaterally, Normal air movement Cardiovascular: No edema, Irregular heart rate/rhythm Capillary refill: <2 Seconds Gastrointestinal: Normal bowel sounds Musculoskeletal: No clubbing, No swelling Integumentary: No rashes, No breakdown Neurological: Normal speech, Normal tone, Normal affect Lymphatics: No axilla or inguinal lymphadenopathy External genitalia: Deferred Rectal: Deferred - Studies Laboratory Data (last 24 hrs) 03/27/23 03/27/23 03/27/23 23:50 23:50 23:50 WBC 6.70 Hgb 13.2 L Hct 37.2 L Plt Count 178 PT 16.3 H INR 1.48 Sodium 138 Potassium 3.3 L BUN 22 H Creatinine 1.42 H Glucose 130 H Magnesium 2.3 Assessment and Plan - Problems (Diagnosis) (1) Atrial fibrillation with controlled ventricular rate Current Visit: Yes Status: Acute Plan: Continue Sotalol as directed Consult Dr. Pompa Continue Eliquis (2) Hypotension Current Visit: Yes Status: Acute Plan: continue to monitor blood pressure gentle IV fluid resuscitation Qualifiers: Hypotension type: hypotension due to hypovolemia Qualified Code(s): I95.89 - Other hypotension; E86.1 - Hypovolemia - Plan Pt denies chest pain at the time of s/s and at this time, second serial troponin drawn and is up from 13.6 to 99.9. Discharge Plan: Home Plan to discharge in: 72 Hours - Advance Directives Does patient have a Living Will: Yes Does patient have a Durable POA for Healthcare: No - Code Status/Comfort Care Code Status Assessed: Yes (full code) Critical Care: No Time Spent Managing Pts Care (In Minutes): 45
[2023-03-28 04:26] LABS: Absolute Lymphocytes (CBC) 2.3 K/uL (0.7-4.9); Hematocrit 38.5 % (39.6-49.0); Lymphocytes % 33.8 % (15.3-44.8); MCV 95.2 fL (80-100); MPV 9.1 fL (7.6-11.3); Platelets 171 thou/uL (152-406); RBC Red Blood Cell Count 4.05 M/uL (4.33-5.43)
[2023-03-28 04:43] LABS: Albumin 3.2 g/dL (3.4-5.0); Bilirubin Total 0.4 mg/dL (0.2-1.0); Magnesium 2.3 mg/dL (1.6-2.4); Potassium 3.7 mEq/L (3.5-5.1); Protein, Total 6.7 g/dL (6.4-8.2)
[2023-03-28 04:45] LABS: Troponin High Sensitivity 99.9 pg/mL (<58.9)
[2023-03-28 05:20] VITALS: BMI 24.1
[2023-03-28] MEDS ORDERED: POTASSIUM 25 MEQ EFFERV TAB PO ONE (05:27)
[2023-03-28] MEDS: NA CHLORIDE 0.9% 1,000 ML IV SCH ×2 (05:39→17:20)
[2023-03-28] MEDS: SOTALOL HCL 80 MG TAB PO SCH ×2 (05:40→18:19)
[2023-03-28] MEDS ORDERED: SOTALOL HCL 80 MG TAB ONE (05:47)
--- NOTE | 2023-03-28 07:20 | P.PN ---
Subjective Date of Service: 03/29/23 Primary Care Provider: Dr. El Chief Complaint: a. fib, hypotension, volume depletion Subjective: No new changes, Improving Review of Systems 10-point ROS is otherwise unremarkable Physical Examination - Vital Signs Temperature: 97.8 F Blood Pressure: 103/85 Pulse: 84 Respirations: 18 Pulse Ox (%): 100 - Physical Exam General: Alert, In no apparent distress, Oriented x3 HEENT: Atraumatic, Normocephalic Neck: Supple, 2+ carotid pulse no bruit Respiratory: Clear to auscultation bilaterally, Normal air movement Cardiovascular: No edema, Normal pulses, Regular rate/rhythm Capillary refill: <2 Seconds Gastrointestinal: Normal bowel sounds, Soft and benign Musculoskeletal: No clubbing, No swelling Integumentary: No rashes, No breakdown Neurological: Normal gait, Normal speech - Studies Laboratory Data (last 24 hrs) 03/27/23 03/27/23 03/27/23 23:50 23:50 23:50 WBC 6.70 Hgb 13.2 L Hct 37.2 L Plt Count 178 PT 16.3 H INR 1.48 Sodium 138 Potassium 3.3 L BUN 22 H Creatinine 1.42 H Glucose 130 H Magnesium 2.3 Assessment And Plan - Plan - Problems (Diagnosis) (1) Atrial fibrillation with controlled ventricular rate Current Visit: Yes Status: Acute Plan: Continue Sotalol as directed Consult Dr. Peña Franks (2) Hypotension Current Visit: Yes Status: Acute Plan: continue to monitor blood pressure gentle IV fluid resuscitation Qualifiers: Hypotension type: hypotension due to hypovolemia Qualified Code(s): I95.89 - Other hypotension; E86.1 - Hypovolemia - Plan Pt denies chest pain at the time of s/s and at this time, second serial troponin drawn and is up from 13.6 to 99.9. Discharge Plan: Home Plan to discharge in: 72 Hours Discharge Plan: Home - Code Status/Comfort Care Code Status: Full Code Physician Review: Patient Assessed, Agree with Above Assessment and Plan Critical Care: No Time Spent Managing PTS Care (In Minutes): 35
[2023-03-28] MEDS: APIXABAN 5 MG TABLET PO SCH ×2 (09:00→21:56)
[2023-03-28] MEDS ORDERED: APIXABAN 5 MG TABLET ONE (09:08)
--- NOTE | 2023-03-28 12:03 | RAD REPORT ---
EXAM DESCRIPTION: Chest Single View CLINICAL HISTORY: 73 years Male, weakness TECHNIQUE: 1 view (Single frontal view of the chest) COMPARISON: None. FINDINGS: LINES AND TUBES: None. CARDIOVASCULAR STRUCTURES: Normal heart size. No pulmonary venous congestion. LUNGS: No confluent areas of acute consolidation. PLEURA: No layering pleural effusions. No pneumothorax. BONES: No acute osseous abnormality of the thorax. IMPRESSION: 1. No acute cardiopulmonary disease. Electronically signed by: Kenn Mejia MD 03/28/2023 12:28 AM CUSTOM DRESSMAKER Due to temporary technical issues with the PACS/Fluency reporting system, reports are being signed by the in house radiologists without review as a courtesy to insure prompt reporting. The interpreting radiologist is fully responsible for the content of the report.
--- NOTE | 2023-03-28 13:18 | P.DS ---
Admission Date: 03/28/23 Discharge Date: 03/28/23 Primary Care Provider: Dr. El Disposition: ROUTINE DISCHARGE Discharge Condition: GOOD Reason for Admission: a. fib, hypotension, volume depletion Consultations: Cardiology Dr Pompa Procedures: Cardilogy, Dr Pompa - Problems (1) Atrial fibrillation with controlled ventricular rate Current Visit: Yes Status: Acute Brief History of Present Illness: 73 year old male presents to the emergency room with past medical history of atrial fibrillation. He reports hypotension, rapid heart rate. He reports being out of town, dehydration, generalized weakness. He reports diagnosis atrial fibrillation in 2019. He is taking Sotalol and Eliquis. Pt was visiting [place] and flew home, when pt stood to exit the plane he became dizzy and had to sit down. He waited to exit the plane until last but then had to walk about a half a mile to his vehicle. Mr. Montesinos states when he began feeling his heartbeat in his fingertips he came to the ED for assessment. On arrival to ED his blood pressure was 90/66 on arrival to the emergency room. Hospital Course: Patient was admitted with A-fib RVR, hypotension. Patient was treated with IV fluids, Betapace 80 mg p.o. in the emergency room. Hypokalemia potassium replaced in emergency room. Resume home Eliquis. Continue Sotalol as directed. Consult Dr. Pompa for cardiology. Continue home Eliquis. Eliquis. Patient had elevated troponin. Likely from A-fib RVR, Plan to discharge home in, follow-up with cardiology in 7 to 10 days. Follow-up with PCP in 1 to 2 weeks. Continue cardiac diet. Resume appropriate home meds. Vital Signs/Physical Exam: Temp Pulse Resp BP Pulse Ox 97.8 F 84 18 103/85 100 03/28/23 13:17 03/28/23 13:17 03/28/23 13:17 03/28/23 13:17 03/28/23 13:17 General: Alert, In no apparent distress, Oriented x3 HEENT: Atraumatic, Normocephalic Neck: Supple, 2+ carotid pulse no bruit, JVD not distended Respiratory: Clear to auscultation bilaterally, Normal air movement Cardiovascular: No edema, Normal pulses, Abnormal S1 S2 Capillary refill: <2 Seconds Gastrointestinal: Normal bowel sounds, Soft and benign Musculoskeletal: No clubbing, No swelling Integumentary: No rashes, No breakdown Neurological: Normal gait, Normal speech, Normal strength at 5/5 x4 extr Laboratory Data at Discharge: WBC 6.80 thou/uL (4.3-10.9) 03/28/23 04:06 Hgb 13.3 g/dL (13.6-17.9) L 03/28/23 04:06 Hct 38.5 % (39.6-49.0) L 03/28/23 04:06 Plt Count 171 thou/uL (152-406) 03/28/23 04:06 PT 16.3 SECONDS (9.5-12.5) H 03/27/23 23:50 INR 1.48 03/27/23 23:50 Sodium 140 mEq/L (136-145) 03/28/23 04:06 Potassium 3.7 mEq/L (3.5-5.1) 03/28/23 04:06 BUN 18 mg/dL (7-18) 03/28/23 04:06 Creatinine 1.20 mg/dL (0.70-1.30) 03/28/23 04:06 Glucose 115 mg/dL (74-106) H 03/28/23 04:06 Magnesium 2.3 mg/dL (1.6-2.4) 03/28/23 04:06 Total Bilirubin 0.4 mg/dL (0.2-1.0) 03/28/23 04:06 AST 25 U/L (15-37) 03/28/23 04:06 ALT 34 U/L (16-61) 03/28/23 04:06 Alkaline Phosphatase 46 U/L (45-117) 03/28/23 04:06 Home Medications: Apixaban [Eliquis] 5 mg PO BID #60 tablet 09/18/18 Sotalol HCl [Betapace*] 40 mg PO BID 6AM 6PM 03/28/23 Physician Discharge Instructions: Plan to discharge home in, follow-up with cardiology in 7 to 10 days. Follow-up with PCP in 1 to 2 weeks. Continue cardiac diet. Resume appropriate home meds. Diet: ADA Activity: Ad colt Followup: Rafael Pompa MD [ACTIVE - CAN ADMIT] - Kel El MD [Primary Care Provider] - Time spent managing pt's care (in minutes): 60
[2023-03-29] MEDS: SOTALOL HCL 80 MG TAB PO SCH (05:47)
[2023-03-29] MEDS: NA CHLORIDE 0.9% 1,000 ML IV SCH (05:47)
[2023-03-29 06:53] LABS: Absolute Lymphocytes (CBC) 1.4 K/uL (0.7-4.9); Hematocrit 37.7 % (39.6-49.0); Lymphocytes % 25.3 % (15.3-44.8); MCV 95.7 fL (80-100); MPV 9.3 fL (7.6-11.3); Platelets 173 thou/uL (152-406); RBC Red Blood Cell Count 3.94 M/uL (4.33-5.43)
[2023-03-29 07:12] LABS: Albumin 3.3 g/dL (3.4-5.0); Bilirubin Total 0.5 mg/dL (0.2-1.0); Magnesium 2.4 mg/dL (1.6-2.4); Potassium 4.2 mEq/L (3.5-5.1); Protein, Total 6.5 g/dL (6.4-8.2)
[2023-03-29] MEDS: APIXABAN 5 MG TABLET PO SCH (08:17)
[2023-03-29 09:03] VITALS: O2SAT 100
[2023-03-29 11:59] VITALS: BP 135/75; TEMP 98
--- NOTE | 2023-03-29 14:11 | EKG ---
Test Date: 2023-03-28 Test Time: 00:43:08 Bottle Washing Machine Operator: ASHLY MEASUREMENT RESULTS: Intervals: Rate: 106 CO: QRSD: 86 QT: 362 QTc: 480 Heidrick: P: CO: QRS: 55 T: -49 INTERPRETIVE STATEMENTS: Atrial fibrillation with premature ventricular or aberrantly conducted complexes T wave abnormality, consider inferior ischemia or digitalis effect T wave abnormality, consider anterolateral ischemia or digitalis effect Abnormal ECG Compared to ECG 09/17/2018 09:26:10 Ventricular premature complex(es) now present Possible ischemia now present Sinus rhythm no longer present T-wave abnormality still present Electronically Signed On 03-29-23 14:07:35 DIAGRAM CLERK by Rafael Pompa
== END 2023-03-29 12:37 | disposition home or self-care (01) | DRG 310 ==
LOC: ER 23:29 → ERHOLD 03-28 03:23 → 4TH 03-28 17:05
PROVIDERS: ADMIT Internal Medicine Nephrology; ATTEND Internal Medicine Nephrology
DX: I48.91 Unspecified atrial fibrillation (principal); E86.1 Hypovolemia; E86.0 Dehydration; E87.6 Hypokalemia; I95.89 Other hypotension; E86.9 Volume depletion, unspecified; Z79.01 Long term (current) use of anticoagulants; Z96.641 Presence of right artificial hip joint
CPT/HCPCS: 36415; 71045; 80048; 80053; 81001; 83605; 83735; 83880; 84443; 84484; 85025; 85610; 93005; 94760; 96360; 96361; 99285; J7030